=== PATIENT | female | born 1975 | race Caucasian/White ===

== ENCOUNTER 2017-08-24 18:44 | Emergency (ER) | payer OTHER ==
[~2017-08-24] VITALS: Ht 160 cm; Wt 63.5 kg
[~2017-08-24 18:44] MED LIST: SYNTHROID50 MCG
== END 2017-08-24 22:08 | disposition home or self-care (01) ==
LOC: ER 18:44
DX: J32.8 Other chronic sinusitis (principal); K21.9 Gastro-esophageal reflux disease without esophagitis

== ENCOUNTER 2017-10-04 08:00 | Outpatient (CLI) | payer OTHER | END 2017-10-04 08:14 | disposition home or self-care (01) | LOC: RAD 08:00 | DX: R10.13 Epigastric pain (principal); K30 Functional dyspepsia; Z12.31 Encounter for screening mammogram for malignant neoplasm of breast; N60.11 Diffuse cystic mastopathy of right breast; N60.12 Diffuse cystic mastopathy of left breast ==

== ENCOUNTER 2019-02-28 13:09 | Outpatient (CLI) | payer OTHER | END 2019-02-28 13:22 | disposition home or self-care (01) | LOC: MAMO-SONO 13:09 | DX: Z12.31 Encounter for screening mammogram for malignant neoplasm of breast (principal); Z87.898 Personal history of other specified conditions; N63.10 Unspecified lump in the right breast, unspecified quadrant; N63.20 Unspecified lump in the left breast, unspecified quadrant; N64.4 Mastodynia; N60.11 Diffuse cystic mastopathy of right breast ==

== ENCOUNTER 2020-09-24 10:31 | Outpatient (CLI) | payer OTHER | END 2020-09-24 10:49 | disposition home or self-care (01) | LOC: MAMO-SONO 10:31 | PROVIDERS: ATTEND Obstetrics & Gynecology Maternal & Fetal Medicine | DX: Z12.31 Encounter for screening mammogram for malignant neoplasm of breast (principal); N63.0 Unspecified lump in unspecified breast; N64.4 Mastodynia; N60.11 Diffuse cystic mastopathy of right breast ==

== ENCOUNTER 2020-09-24 13:59 | Outpatient (CLI) | payer OTHER | END 2020-09-24 15:00 | disposition home or self-care (01) | LOC: LAB 13:59 | PROVIDERS: ATTEND Obstetrics & Gynecology Maternal & Fetal Medicine | DX: E03.8 Other specified hypothyroidism (principal); D63.8 Anemia in other chronic diseases classified elsewhere; N30.90 Cystitis, unspecified without hematuria; E78.00 Pure hypercholesterolemia, unspecified; R73.9 Hyperglycemia, unspecified; K92.1 Melena; Z12.11 Encounter for screening for malignant neoplasm of colon; E55.9 Vitamin D deficiency, unspecified ==

== ENCOUNTER 2021-10-13 12:33 | Outpatient (CLI) | payer OTHER | END 2021-10-13 12:45 | disposition home or self-care (01) | LOC: MAMO-SONO 12:33 | PROVIDERS: ATTEND Obstetrics & Gynecology Maternal & Fetal Medicine | DX: N63.0 Unspecified lump in unspecified breast (principal); Z12.31 Encounter for screening mammogram for malignant neoplasm of breast; N64.4 Mastodynia; N60.11 Diffuse cystic mastopathy of right breast ==

== ENCOUNTER 2021-12-24 13:11 | Outpatient (CLI) | payer OTHER | END 2021-12-24 13:28 | disposition home or self-care (01) | LOC: RAD 13:11 | PROVIDERS: ATTEND Internal Medicine | DX: J01.90 Acute sinusitis, unspecified (principal); J32.9 Chronic sinusitis, unspecified ==

== ENCOUNTER 2022-05-27 11:16 | Outpatient (CLI) | payer OTHER | END 2022-05-27 11:26 | disposition home or self-care (01) | LOC: RAD 11:16 | PROVIDERS: ATTEND Internal Medicine | DX: J01.90 Acute sinusitis, unspecified (principal); J32.9 Chronic sinusitis, unspecified ==

== ENCOUNTER 2023-07-19 10:52 | Outpatient (CLI) | payer OTHER | END 2023-07-19 11:10 | disposition home or self-care (01) | LOC: MAMO-SONO 10:52 | PROVIDERS: ATTEND Obstetrics & Gynecology Maternal & Fetal Medicine | DX: N64.4 Mastodynia (principal); N63 Unspecified lump in breast; N60.11 Diffuse cystic mastopathy of right breast; Z12.31 Encounter for screening mammogram for malignant neoplasm of breast ==

== ENCOUNTER → 2023-07-19 12:24 | Outpatient (CLI) | payer OTHER ==
[2023-07-19 13:20] LABS: HEMOGLOBIN 12.3 g/dL (12.0-15.00); MEAN CELL VOLUME 85.9 fL (80.00-100.00); MEAN CORPUSCULAR HEMOGLOBIN 28.5 pg (27.00-32.0); MEAN CORPUSCULAR HGB CONC 33.2 g/dl (32.0-36.0); PLATELET COUNT 305 K/uL (150-450); RED BLOOD COUNT 4.31 M/uL (4.00-6.00); RED CELL DISTRIBUTION WIDTH 13.8 % (11.5-14.5)
[2023-07-19 13:44] LABS: PH,URINE 6.5 (5.0-8.0); URINE APPEARANCE Clear; URINE BILIRRUBIN Negative (NEGATIVE); URINE BLOOD Negative; URINE COLOR Yellow; URINE GLUCOSE Negative (NEGATIVE); URINE LEUKOCYTE Negative; URINE NITRATE Negative; URINE PROTEIN Negative (NEGATIVE); URINE UROBILINOGEN 0.2 E.U./dl
[2023-07-19 13:46] LABS: URINE BACTERIA 85.6 uL (0.0-1933); URINE EPITHELIAL CELLS 5.4 uL (0.0-38.8); URINE RBC 9.9 uL (0.0-20.8)
[2023-07-19 14:10] LABS: URINE WBC 0.9 uL (0.0-23.2)
[2023-07-19 14:27] LABS: ALBUMIN 3.7 gm/dL (3.4-5.0); BILIRUBIN TOTAL 0.49 mg/dL (0.3-1.2); CALCIUM 8.8 mg/dL (8.5-10.1); CHOL HDL RATIO 2.2 (0-5.0); CREATININE SERUM 0.73 mg/dL (0.55-1.02); GFR 85.83; GLOBULINA 3.2 G/DL (2.4-3.5); POTASSIUM 3.78 mEq/L (3.5-5.1); TOTAL PROTEIN 6.9 gm/dL (6.4-8.2); TSH 2.43 uIU/mL (0.358-3.74)
== END | disposition home or self-care (01) ==
LOC: LAB 12:24
PROVIDERS: ATTEND Obstetrics & Gynecology Maternal & Fetal Medicine
DX: E03.8 Other specified hypothyroidism (principal); D63.8 Anemia in other chronic diseases classified elsewhere; N30.90 Cystitis, unspecified without hematuria; E78.00 Pure hypercholesterolemia, unspecified; R73.9 Hyperglycemia, unspecified; K92.1 Melena; Z12.11 Encounter for screening for malignant neoplasm of colon; E55.9 Vitamin D deficiency, unspecified; N91.2 Amenorrhea, unspecified; N92.1 Excessive and frequent menstruation with irregular cycle; E03.9 Hypothyroidism, unspecified

== ENCOUNTER 2024-09-12 13:28 | Outpatient (CLI) | payer OTHER | END 2024-09-12 13:30 | disposition home or self-care (01) | LOC: MAMO-SONO 13:28 | PROVIDERS: ATTEND Obstetrics & Gynecology | DX: N64.4 Mastodynia (principal); Z12.31 Encounter for screening mammogram for malignant neoplasm of breast ==